=== PATIENT | female | born 1965 | race Caucasian/White ===

== ENCOUNTER → 2019-10-17 15:06 | Outpatient (CLI) | payer OTHER, SELFPAY ==
[2019-10-20 08:37] LABS: COVID19 Sendout Not Detected (Not Detect)
== END ==
PROVIDERS: Visit Provider Physician Assistant
DX: Z01.812 Encounter for preprocedural laboratory examination (principal)
CPT/HCPCS: 87635

== ENCOUNTER 2019-10-21 10:43 | Observation (INO) | payer OTHER, SELFPAY ==
[2019-10-09 12:59] VITALS: BMI 41.8
[2019-10-20] VITALS (23 sets, daily range): BP systolic 113–166; BP diastolic 19–84; PULSE 65–97; RESP 10–17; TEMP 36.2–37.3; O2SAT 92–99; BMI 44.6
--- NOTE | 2019-10-20 | DI.RAD.S_ITS ---
PROCEDURE: XR LUMBAR SPINE 2-3V INDICATIONS: L4-5 TLIF TECHNIQUE: 2 intraoperative fluoroscopic views of the lumbar spine were acquired. COMPARISON: None. FINDINGS: Intraoperative fluoroscopic images of lower lumbar spine shows transpedicular fusion at L4-5 level with intervertebral spacer placement. Alignment of lumbar spine is anatomic. IMPRESSION: Fluoroscopy guidance was provided intraoperatively for L4-5 fusion. Dictated by: Robert Hood M.D. on 10/20/2019 at 16:11 Approved by: Robert Hood M.D. on 10/20/2019 at 16:15
[2019-10-20] MEDS: LACTATED RINGERS 1,000 ML 42 ML IV ×2 (11:21→14:08)
--- NOTE | 2019-10-20 11:44 | PM.PREOP ---
Pre-operative Note COVID-19 COVID-19 status: Negative Result date/Date tested (Pos, Neg/Pending): 10/18/19 Interval Note History & Physical reviewed/Exam performed by Physician: Yes Changes to H&P: No
[2019-10-20] MEDS: MIDAZOLAM 2 MG/2 ML VIAL IV (12:08)
[2019-10-20] MEDS: CEFAZOLIN 2 GM/100 ML FROZ.PIGGY IV ×2 (12:11→19:41)
--- NOTE | 2019-10-20 12:49 | SUR.OPER ---
Prone on spine table, head in foam head support, padded chest and pelvic supports, gel pad at knees, lower legs supported by pillows; nipples, genitalia and toes free of pressure, arms secured on foam padded arm boards at <90 degrees abduction. Tape over blanket at thigh secured to table.
[2019-10-20] MEDS: BUPIVACAINE 0.25% W/ EPI 30 ML VIAL INJ (12:59)
[2019-10-20] MEDS: BUPIVACAINE LIPOSOME 266 MG/20 ML VIAL INJ (13:01)
--- NOTE | 2019-10-20 14:44 | P.OP_ITS ---
Operative Date/Time/Diagnoses Date of procedure: 10/20/19 Time of procedure: 12:46 Pre-op diagnosis: 1. L4-5, L5-S1 spinal stenosis 2. L4-5 spondylolisthesis 3. L4-5, L5-S1 spondylosis with radiculopathy Post-op diagnosis: same Procedure & Clinicians Procedure: 1. L4-5 Postero-lateral and posterior interbody fusion 2. L4-5 interbody cage placement. 3. L4-5 decompressive laminectomy with bilateral facetecomies 4. L4-5 Posterior non-segmental instrumentation 5. L5-S1 hemilaminectomy 6. Jackman of bone marrow from iliac crest 7. Utilization of microsurgical technique and operating microscope Same procedure as scheduled: Yes Indications: Patient has been having chronic back pain and worsening lumbar radiculopathy. Patient failed multiple conservative management with worsening pain weakness and numbness in her lower extremity. Patient has been having difficulty performing activity of daily living. After discussing risks benefits of treatment options, patient elected proceed with surgery. Surgeon: Adonis Dave [employer] Technician: Emilie Vargas Click Yes if Unassisted: No Anesthesia Type: General Operative Notes Closure Type: primary Specimen(s): none sent Prosthetic devices, grafts, tissues, transplants, or devices: Globus revolve screws, Rise cage Estimated Blood Loss (mL): 50 Blood products transfused: none Procedure in detail: Patient was seen in the preoperative area. Risks and benefits of the surgery was discussed with the patient. Informed consent was obtained from the patient and placed in the chart. Surgical site was marked. Patient was taken to the operative room. General anesthesia was administered. Prophylactic antibiotic was given to the patient less than 30 min before the incision was made. Patient was placed into a prone position on the Rajiv table. Patient's back was then prepped and draped in the sterile fashion. Time- out was performed at this time. Using AP and lateral C-arm imaging the interval between L4-5 L5-S1 was identified and marked on patient's back. A 2 inch incision 2 in from midline was made on the right side first. The fascia was incised in line with skin incision. Globus MARS retractors was placed inside the incision and docked onto the L4 lamina. Using microsurgical technique and operating microscope, a L4 laminectomy and L4-5 facetectomy was performed using a Kerrison rongeur. The disc space at L4-5 was identified. And a total diskectomy was performed at L4-5 level. The endplates were decorticated using a rasp and shaver. The total diskectomy and decortication was performed at L4-5 level in order to to accomplish a L4-5 fusion. Patient was found have severe central and neural foramen stenosis at L4-5 level which was fully decompressed after the laminectomy facetectomy was completed. The local bone from the laminectomy and facetectomy was saved for local bone grafting. After the total diskectomy and decortication was completed, Trifecta bone graft material was combined with local bone that was harvested earlier. At this time, a separate skin is incision was made over the iliac crest. A Jamshidi needle was inserted into the iliac crest through a separate skin incision. 5 cc of bone marrow aspiration was obtained through the separate skin incision using a Jamshidi needle from the iliac crest. The bone marrow aspiration was combined with local bone and the trifecta bone grafting material. The bone grafting material was placed into the L4-5 interbody space along with a expandable cage. The cage was expanded to its maximum height using the torque limiting screwdriver. At this time the MARS retractor was redirected over the L5 lamina. Using microsurgical technique and operating microscope, a L5 heminectomy was performed using the Kerrison rongeur. The ligamentum flavum was also resected at the side of the hemilaminectomy for further decompression of the epidural space. At this time a mirror image incision was made on the left side. The fascia was incised in line with the skin incision. Globus MARS retractor was inserted and docked onto the L4-5 posterolateral gutter. Using the power drill, posterior- lateral decortication was performed at L4-5 level until bleeding cortical bone was identified. The remaining bone grafting material was placed into the L4-5 posterior lateral gutter he order to accomplish posterolateral fusion at the L4- 5 level. Using the double C-arm technique, pedicle screws were placed into the L4 and L5 pedicles bilaterally. This was done by placing the Jamshidi needle into the pedicles, then placing the guidewires over the Jamshidi needle, and finally placing the cannulated screws over the guidewires bilaterally. After the pedicle screws were placed, 2 titanium rods was locked into the heads of the pedicle screws using locking caps and torque limiting screwdriver. After all the hardware was placed, and confirmed with AP and lateral C-arm imaging, the wound was then irrigated with sterile normal saline and packed with Ray-Kyle gauze for 3 min to accomplish hemostasis. After the gauze was removed the deep fascia was closed with #1 Vicryl suture. The subcutaneous layer was closed with 2-0 Vicryl. The skin was closed with skin mayuri. Patient tolerated the procedure well. There were no complications. Complications: none Post-operative Condition: stable Disposition: Acute Care Plan for aftercare: Admit to inpatient hospital
[2019-10-20] MEDS: ONDANSETRON 4 MG/2 ML INJ IV (15:14)
[2019-10-20] MEDS: HYDROMORPHONE 2 MG INJ IV ×4 (15:14→15:59)
[2019-10-20] MEDS: fentaNYL 100 MCG/2 ML INJ IV ×2 (15:14→15:37)
[2019-10-20] MEDS: LORazepam 2 MG/ML INJ 0.25 MG IV (15:28)
[2019-10-20] MEDS: SODIUM CHLORIDE 0.9% 1,000 ML 100 ML IV (17:03)
[2019-10-20] MEDS: hydrOXYzine pamoate 25 MG CAPSULE PO ×2 (17:49→22:34)
[2019-10-20] MEDS: HYDROMORPHONE 0.5 MG INJ IV ×3 (18:18→22:34)
[2019-10-20] MEDS: OXYCODONE IR 10 MG TABLET PO ×2 (19:05→23:22)
[2019-10-20] MEDS: LIDOCAINE PATCH 1 EACH ADH..PATCH TOP (20:03)
[2019-10-20] MEDS: DOCUSATE 100 MG CAPSULE PO (20:06)
[2019-10-20] MEDS: SENNOSIDES 8.6 MG TABLET 17.2 MG PO (20:06)
--- NOTE | 2019-10-20 22:43 | PC.NURSE ---
Pt is A and O x 4, rates L knee pain and bilat hip pain and surgical site pain 5-8/10. She has requested lidocaine patches dilaudid 0.5 mg IVP x 3, oxycodone 10 mg po x 1 since arriving on the unit at approx 1600. She is voiding qs clear yellow. S1,S2, LS clear, + BTs. Drg is C/D/I. She ate hospital dinner and [employer] and has dosed off a few times. She has made multiple requests and knows how to use her call light.
--- NOTE | 2019-10-21 01:16 | PC.NURSE ---
Addendum entered by Isabella Castro R.N. 10/21/19 03:41: States pain is better than earlier but still 6-7/10 so medicated with IV Dilaudid Addendum entered by Isabella Castro R.N. 10/21/19 02:40: States pain is now 7/10 and is no longer crying. Medicated with po Dilaudid + Vistaril. Addendum entered by Isabella Castro R.N. 10/21/19 01:43: Pain remains uncontrolled with the best pain got was 6/10 but now even with minimal movement is having 9/10 pain; tearful. Dr Corona contacted and new pain medication orders received. Original Note: Patient seen and assessed at 2322. Is alert and oriented. Breath sounds CTA with RA sat of 94%. HRR. Denies nausea. BT present but denies flatus. Has dysuria upon initial urination but denies frequency or urgency. Is moving self in bed. Assisted to BSC with walker and 1 assist. Dressing to back is CDI. Complains of 8/10 back pain radiating down leg to knee; medicated with Oxycodone and ice applied. Noted to have an abraised area on anterior left lower leg. Puffy around ankles. Calf SCD's applied as per MD order. Fall risk score is moderate; bed alarm is ativated.
[2019-10-21] MEDS: HYDROMORPHONE 0.5 MG INJ IV ×2 (01:21→01:37)
[2019-10-21] MEDS: HYDROMORPHONE 4 MG TABLET PO ×6 (02:38→21:28)
[2019-10-21] MEDS: hydrOXYzine pamoate 25 MG CAPSULE PO ×2 (02:38→21:29)
[2019-10-21 03:30] VITALS: BP 153/76; PULSE 83; RESP 16; TEMP 37; O2SAT 94
[2019-10-21] MEDS: SODIUM CHLORIDE 0.9% 1,000 ML 100 ML IV (03:32)
[2019-10-21] MEDS: HYDROMORPHONE 1 MG INJ IV ×4 (03:33→21:42)
[2019-10-21] MEDS: CEFAZOLIN 2 GM/100 ML FROZ.PIGGY IV (03:39)
[2019-10-21 05:52] LABS: Hematocrit 37.9 % (36-46); Hemoglobin 13.2 g/dL (12.0-16.0)
--- NOTE | 2019-10-21 08:08 | PM.PNPO.1 ---
Subjective Subjective Date Patient Seen: 10/21/19 Time Patient Seen: 08:08 Interval history: Postop day [address] Dave. Had a lot of pain control issues overnight distal rating and a eugenia 9/10 with oxycodone. Was switched to oral Dilaudid and IV Dilaudid increased from 0.5-1 as seems to be doing much better this morning. Also states that she does not have much pain when she is walking around the more when she is lying in bed. Denies fevers or chills also states that she is not allergic to acetaminophen only Vicodin. Exam Vital Signs (past 8 hours): - 10/21/19 03:30 Temperature 98.6 F Pulse Rate 83 Respiratory Rate 16 Blood Pressure 153/76 H Pulse Oximetry 94 Oxygen Delivery Method Room Air Oxygen Flow Rate 0 Narrative Exam Narrative: General exam alert oriented female no acute distress HEENT exam normocephalic atraumatic Respiratory exam unlabored on room air Musculoskeletal exam demonstrates dorsiflexion plantar flexion bilateral ankles. SCDs are not in place they are often at the end of the bed. Calves are soft. Objective Labs Result Diagrams: 10/21/19 05:35 Labs: Laboratory Results - last 24 hr 10/21/19 05:35 Hgb 13.2 Hct 37.9 Assessment & Plan Post-op Postoperative Procedures: Procedures Operation Date: 10/20/19 12:15 Actual Procedures Side Surgeon p L5-S1 hemilaminectomy, L4-5 TLIF w/posterior instrumentation Adonis Dave MD Postop day 1. Mobilized with physical therapy today. Work on pain control. Focus on the oral pain medication limit IV as much as possible. Likely discharge tomorrow Quality VTE Deep Vein Thrombosis/Pulmonary Embolism Present on Admission: No
--- NOTE | 2019-10-21 08:55 | OT.IP.EVAL ---
Current Diagnoses Spondylolisthesis, lumbar region (10/20/19) Spinal stenosis, lumbar region without neurogenic claudication (10/20/19) Spinal stenosis, lumbar region with neurogenic claudication (10/20/19) Surgery Performed Operation Date: 10/20/19 12:15 Actual Procedures p L5-S1 hemilaminectomy, L4-5 TLIF w/posterior instrumentation - Adonis Dave MD Past Medical History (Last Updated 10/15/19 @ 11:32 by Kristine Schulte RN) Marin's esophagus (Acute) Depression (Acute) Elevated cholesterol (Acute) GERD (gastroesophageal reflux disease) (Acute) HTN (hypertension) (Acute) Kidney stone (Acute) Mood disorder (Acute) PVCs (premature ventricular contractions) (Acute) Viral meningitis (Acute) Surgical History (Last Updated 10/15/19 @ 11:32 by Kristine Schulte RN) History of (Acute) History of hysterectomy (Acute) Occupational Therapy Inpatient Evaluation/Re-Eval M1 PT/OT-IP Prior Functional Status Start: 10/21/19 12:44 Freq: NEEDED Status: Active Protocol: Document 10/21/19 08:55 [facility] (Rec: 10/21/19 15:05 [facility] [id number]) Medical Review Prior Functional Status Medical History Reviewed Yes Communication able to make needs known Mobility and Gait pt stated that she is independent with all mobilities and ambulation without AD Activities of Daily Living and IADL's Pt states was able to do all ADl and IADl needs but having more difficulty and very painful while sweeping. Social History Household Members other Living Arrangements House Number of Floors (Floors) One Floor Number of Stairs To Enter/Railing? 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 Pt states has friends that can assist and check on her daily but not stay with her. M2 OT-IP Current Condition Start: 10/21/19 12:44 Freq: Status: Active Protocol: Document 10/21/19 08:55 [facility] (Rec: 10/21/19 15:05 [facility] [id number]) Occupational Therapy Current Condition Current Condition Evaluation Date 10/21/19 Treatment Diagnosis Spinal stenosis, s/p L5-S1 hemilaminectomy, L4-5 TLIF w/ post inst Diagnosis Onset Date 10/20/19 Post Operative Precautions Lumbar Precautions Log Roll,No Twisting,Limit Bending,Lifting Restriction of 10 lbs,Gait Belt above Incisional Area Weight Bearing Status Weight Bearing Status Weight Bear as Tolerated M3 OT- IP Subjective and Pain Start: 10/21/19 12:44 Freq: Status: Active Protocol: Document 10/21/19 08:55 [facility] (Rec: 10/21/19 15:05 [facility] [id number]) OT- Subjective Occupational Therapy Visit Type Type Initial Evaluation Visit Start Time 08:55 Visit Stop Time 10:03 Total Visit Minutes 68 Occupational Therapy Visit Comments Patient Comments Pt already up in the recliner and agreed to get up for OT eval. Patient/Caregiver Goals To go home. OT Pain Assessment Pain When Pain Assessed During Mobility Pain Present Pain Present Pain Reported Location left back/leg/knee Intensity 7 M4 OT- IP ADL's Start: 10/21/19 12:44 Freq: Status: Active Protocol: Document 10/21/19 08:55 [facility] (Rec: 10/21/19 15:05 [facility] [id number]) OT [id number] General Evaluation Self-Feeding Ability Independent OT ADL-Grooming General Evaluation Grooming Ability Standby Assistance Comments OT Grooming Comments Educated to lean at hips or spit into a cup to follow back precautions. OT ADL-Oral Care General Eval Oral Care Ability Independent OT ADL-Dressing General Eval Lower Body Dressing Ability Maximum Assistance Areas Needing Assistance Socks Comments OT Dressing Comments Pt states to just wear gowns at home and may not even wear underwear. Educated on LB dressing equipment to help increase ease and independence with LB dressing with use of compound specialist, sock aid and long handled shoe horn. OT ADL-Toileting General Evaluation Areas Needing Assistance Perform Perineal Hygiene Comments OT Toileting Comments At this time , pt would not be able to reach after a bowel movement and educated on toilet paper aid to increase ease and to ensure proper back precautions. OT ADL-Bathing Comments OT Bathing Comments Not at this time. M5 OT- IP IADL's Start: 10/21/19 12:44 Freq: Status: Active Protocol: Document 10/21/19 08:55 [facility] (Rec: 10/21/19 15:05 [facility] [id number]) OT-Instrumental Activities of Daily Living Deficits IADL Deficits Identified Deficits Home Safety Awareness Awareness of Need for Assistance at Home Good Awareness Ability to Problem Solve Emergency Able to Problem Solve Situations Medication Management Medication Management No Deficits Identified Money Management Money Management No Deficits Identified Meal Preparation Meal Preparation Caregiver Provides Assist Body Technician/Painter Body Technician/Painter Caregiver Provides Assist Driving Driving Caregiver Provides Assist M6 OT- IP Functional Cognition Start: 10/21/19 12:44 Freq: Status: Active Protocol: Document 10/21/19 08:55 [facility] (Rec: 10/21/19 15:05 [facility] [id number]) Cognitive Factors Limiting Selfcare Function Cognitive Ability Level of Alertness Alert Patient Orientation Name,Age,Birthday,Month,Date, Year,Day of Week,Place, Situation Attention Span Ability Capable of Focused Attention, Capable of Sustained Attention Ability to Follow Commands Able to Follow One Step Commands Memory Description No Deficits Noted Safety Awareness Decreased Ability to Apply Precautions,Underestimates Need for Assistance Cognitive Comments Cognitive Assessment Comments Pt needing reminders to incorporate back precautions for mobility needs. use of at least one hand to push up from surface sitting on. OT- Vision and Hearing OT- Hearing Assessment OT- Hearing Assessment WFL OT- Vision Assessment Visual Acuity WFL M7 OT- IP Mobility and Balance Start: 10/21/19 12:44 Freq: Status: Active Protocol: Document 10/21/19 08:55 [facility] (Rec: 10/21/19 15:05 [facility] [id number]) OT- Bed Mobility Assessment Rolling Type of Rolling Roll to Left Supine to Sit Supine to Sit Assist Standby Assistance Sit to Supine Sit to Supine Assist Standby Assistance Scooting Scooting to Edge of Bed Standby Assistance OT-Transfer Assessment Sit to and From Stand Sit to and from Stand Standby Assistance Transfers Transfer Ability Standby Assistance Technique Transfer Destination Bed,Chair,Toilet Devices Transfer Assistive Devices Gait Belt,Front Wheeled Walker Comments Mobility Comments Initially pt needing use of bed rail to help get up and then after practice and more education able to get into and out of the bed without use of bed rail with increased time. Pt states has a recliner coming on and plans to sleep there initially. OT- Gait Assessment Comments Gait Ability Comments SBA with FWW. OT- Balance Assessment Sitting Balance and Reactions Static Sitting Balance Ability Normal Dynamic Sitting Balance Ability Good Standing Balance and Reactions Static Standing Balance Ability Good M8 OT- IP Objective Assessments Start: 10/21/19 12:44 Freq: Status: Active Protocol: Document 10/21/19 08:55 [facility] (Rec: 10/21/19 15:05 [facility] [id number]) OT Gross Range of Motion Upper Extremity Range of Motion Assessment Within Functional Limits OT Strength Upper Extremity Strength Assessment Within Functional Limits OT-Muscle Tone Assessment Muscle Tone WNL Yes M9 OT- IP Assessment and Plan Start: 10/21/19 12:44 Freq: Status: Active Protocol: Document 10/21/19 08:55 [facility] (Rec: 10/21/19 15:05 [facility] [id number]) OT Summary Assessment and Plan Potential Rehabilitation Potential Good Analytic Complexity at Evaluation Low Summary OT Impairments Pain,Functional Mobility, Grooming,Dressing,Toileting, Bathing,Toilet Transfers, Shower Transfers,Activity Tolerance Progress Towards Goals Progressing Toward Goals Assessment Summary Pt low complexity and main barrier are steps, pain, and now needing assist for toileting and dressing needs. Pt will benefit from toilet aid. Pt looking to go home when medically stable. Goals Grooming Goal Independent Dressing Goal Independent Toileting Goal Independent,Toilet Paper Aid Bathing Goal Standby Assistance Toilet Transfer Goal Independent Shower Transfer Goal Standby Assistance Patient/Caregiver Education Goal Demonstrate Post-Op Precautions,Caregiver Independent Assisting Patient Days to Meet Goals 5 Frequency of Treatment Frequency Of Treatment Once a Day Treatment Plan OT Treatment Plan ADL Training,Functional Mobility,Patient/Family Education,Discharge Planning Other Treatment Recommendations and Next Shower Treatment Focus Discharge Recommendations OT Discharge Recommendations Home with Assistance Home Equipment Needs Toilet paper aid Transportation Needs at Discharge Private Vehicle
[2019-10-21 09:00] VITALS: BP 146/81; PULSE 83; RESP 16; TEMP 37.3; O2SAT 97
[2019-10-21] MEDS: PSYLLIUM HUSK 1 PACKET PO (09:25)
[2019-10-21] MEDS: LOSARTAN 50 MG TABLET 100 MG PO (09:25)
[2019-10-21] MEDS: DOCUSATE 100 MG CAPSULE PO ×2 (09:25→21:28)
[2019-10-21] MEDS: lamoTRIgine 100 MG TABLET 200 MG PO (09:26)
[2019-10-21] MEDS: atenoloL 50 MG TABLET PO (09:26)
--- NOTE | 2019-10-21 10:00 | PT.IIE ---
Current Diagnoses Spondylolisthesis, lumbar region (10/20/19) Spinal stenosis, lumbar region without neurogenic claudication (10/20/19) Spinal stenosis, lumbar region with neurogenic claudication (10/20/19) Surgery Performed Operation Date: 10/20/19 12:15 Actual Procedures p L5-S1 hemilaminectomy, L4-5 TLIF w/posterior instrumentation - Adonis Dave MD Surgical History (Last Updated 10/15/19 @ 11:32 by Kristine Schulte RN) History of (Acute) History of hysterectomy (Acute) Medical History (Last Updated 10/15/19 @ 11:32 by Kristine Schulte RN) Marin's esophagus (Acute) Depression (Acute) Elevated cholesterol (Acute) GERD (gastroesophageal reflux disease) (Acute) HTN (hypertension) (Acute) Kidney stone (Acute) Mood disorder (Acute) PVCs (premature ventricular contractions) (Acute) Viral meningitis (Acute) Physical Therapy Inpatient Evaluation/Re-Eval M1 PT/OT-IP Prior Functional Status Start: 10/21/19 12:28 Freq: NEEDED Status: Active Protocol: Document 10/21/19 10:00 AB (Rec: 10/21/19 12:43 AB [id number]) Medical Review Prior Functional Status Medical History Reviewed Yes Communication able to make needs known Mobility and Gait pt stated that she is independent with all mobilities and ambulation without AD Social History Household Members other Living Arrangements House Number of Floors (Floors) One Floor Number of Stairs To Enter/Railing? 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 PT-IP Current Condition Start: 10/21/19 12:28 Freq: NEEDED Status: Active Protocol: Document 10/21/19 10:00 AB (Rec: 10/21/19 12:43 AB [email or web address]) Physical Therapy Current Condition Current Condition Evaluation Date 10/21/19 Treatment Diagnosis s/p L4-5 post/postlat fusion/ lami; L5S1 hemilami; difficulaty in walking Onset Date 10/20/19 Precautions Lumbar Precautions Log Roll,No Twisting,Limit Bending,Lifting Restriction of 10 lbs,Gait Belt above Incisional Area M3 PT-IP Subjective Start: 10/21/19 12:28 Freq: NEEDED Status: Active Protocol: Document 10/21/19 10:00 AB (Rec: 10/21/19 12:43 AB [email or web address]) Subjective Physical Therapy Visit Type Type Initial Evaluation Visit Start Time 10:00 Visit Stop Time 10:45 Total Visit Minutes 45 Number of MANUFACTURING MAINTENANCE MECHANIC Visits 0 Physical Therapy Visit Comments Patient Comments agreeable to do PT Therapy Pain Assessment Pain When Pain Assessed At Rest Pain Present Pain Present Pain Reported Location left back/leg/knee Intensity 7 Scale Used Numeric (0 - 10) Pain Management Techniques Apply Cold,Distraction, Modification of Treatment,Re- positioning,Timing of Activity with Medications M4 PT-IP Mobility and Gait Start: 10/21/19 12:28 Freq: NEEDED Status: Active Protocol: Document 10/21/19 10:00 AB (Rec: 10/21/19 12:43 [email or web address]) PT-Bed Mobility Assessment Rolling Type of Rolling Log Rolling Level of Assist Minimal Assistance Supine to Sit Supine to Sit Minimal Assistance,Bedrails Sit to Supine Sit to Supine Standby Assistance,Bedrails PT-Transfer Assessment Sit to and From Stand Sit to and from Stand Contact Guard Assistance,1 Person Assistance,Use of Upper Extremities Equipment Transfer Assistive Device Gait Belt,Large Based Quad Cane Orthotic/Prosthetic Devices or Brace: No Transfers Transfer Destination Toilet Transfer Technique ambulated using FWW Comments Mobility Comments completed log roll supine to sit min A and cues. c/o pain. pt was able to sit on EOB SBA. completed sit to stand CGA and ambulated using FWW CGA. completed stairs and ambulated back to room CGA. pt requested to use the toilet . completed using FWW CGA. Pt stated that she does not tolerate sitting due to pain and want to go back in bed. positioned pt in bed. ice pack provided. call light and table placed within reach. Gait Assessment Gait Gait Assistance Required: Contact Guard Assist Distance (Feet) 200 Able to Maintain Weight Bearing Status Yes During Gait Assistive Devices Assistive Device Front Wheeled Walker Orthotic/Prosthetic Devices or Brace: No Factors Limiting Gait Function Factors Limiting Gait Function Decreased Strength,Limited Range of Motion,Pain,Poor Balance Stair Climbing Assessment Evaluation Level of Assist On Stairs Contact Guard Assistance,1 Person Assistance Devices Stair Climbing Assistive Devices Right Railing Technique/Endurance Stair Climbing Direction Ascend and Descend Stair Climbing Technique Step to Step Number of Steps Climbed 3 Query Text: Stair Climbing Set # Repetitions (reps) 1 Comments Stair Climbing Comments pt use R rail ascending with pt holding on with B hands PT-Balance Assessment Sitting Balance and Reactions Static Sitting Balance Ability Good Dynamic Sitting Balance Ability Good Standing Balance and Reactions Static Standing Balance Ability Fair Dynamic Standing Balance Ability Fair Device Used FWW M5 PT-IP Objective Assessments Start: 10/21/19 12:28 Freq: NEEDED Status: Active Protocol: Document 10/21/19 10:00 AB (Rec: 10/21/19 12:43 AB [id number]) Orientation Orientation/Cognition Level of Alertness Alert Orientation Name,Age,Birthday,Month,Date, Year,Day of Week,Place, Situation Language Function Ability No Deficits Noted Safety Awareness Understands Safety Issues Memory Description No Deficits Noted Gross Range of Motion Lower Extremity ROM Assessment Within Functional Limits Strength Lower Extremity Strength Assessment Right Impaired Hip 4-/5 Knee 4-/5 Coordination Assessment Gross Coordination Gross Coordination WNL Sensation Assessment Sensation Gross Sensation WNL Muscle Tone Muscle Tone WNL Yes M6 PT-IP Treatment Start: 10/21/19 12:28 Freq: NEEDED Status: Active Protocol: Document 10/21/19 10:00 AB (Rec: 10/21/19 12:43 AB [email or web address]) Physical Therapy Treatment Education Education Provided Precautions,Weight Bearing Status,Post-Op Packet,Safety M7 PT-IP Assessment and Plan Start: 10/21/19 12:28 Freq: NEEDED Status: Active Protocol: Document 10/21/19 10:00 AB (Rec: 10/21/19 12:43 AB [email or web address]) PT Summary Assessment and Plan Potential Rehabilitation Potential Good Status of Condition at Evaluation Stable Summary Impairments Pain,ROM,Strength,Balance,Bed Mobility,Transfers,Gait, Activity Tolerance Assessment Summary pt requiring min A with bed mobility, CGA with transfers and ambulation using FWW but with c/o increase pain and requires increase time to complete all tasks. pt plans to go home and stated that her roommate may be able to assist her some but is not definite. pt will likely progress with mobility during hospital stay. will continue to assess progress. Goals Bed Mobility Goal Independent Transfer Goal Independent,Front Wheeled Walker Gait Goal Independent,Front Wheel Walker Gait Distance 250 Other Goals up/down 8 steps R rail ascending SBA Days to Meet Goals 5 Frequency of Treatment Frequency Of Treatment Twice a Day Treatment Plan Physical Therapy Treatment Plan Bed Mobility Training,Transfer Training,Gait Training, Therapeutic Exercise,Balance Retraining,Post Op Education, Discharge Planning,Hot or Cold Pack,Neuromuscular Re-ed, Coordination Retraining,Manual Therapy Recommendations To Nursing Amount of Assist Needed 1 Person Assist Discharge Recommendations PT Discharge Recommendations Home with Assistance Transportation Needs at Discharge Private Vehicle
[2019-10-21 12:00] VITALS: BP 169/88; PULSE 66; RESP 16; TEMP 37.1; O2SAT 98
[2019-10-21] MEDS: SODIUM CHLORIDE 0.9% FLUSH 10 ML IV ×2 (12:26→21:28)
--- NOTE | 2019-10-21 13:49 | PT.IPTN ---
Current Diagnoses Spondylolisthesis, lumbar region (10/21/19) Spinal stenosis, lumbar region without neurogenic claudication (10/21/19) Spinal stenosis, lumbar region with neurogenic claudication (10/21/19) Surgery Performed Operation Date: 10/20/19 12:15 Actual Procedures p L5-S1 hemilaminectomy, L4-5 TLIF w/posterior instrumentation - Adonis Dave MD Physical Therapy Treatment Note M2 PT-IP Current Condition Start: 10/21/19 12:28 Freq: NEEDED Status: Active Protocol: Document 10/21/19 10:00 AB (Rec: 10/21/19 12:43 AB [email or web address]) Physical Therapy Current Condition Current Condition Evaluation Date 10/21/19 Treatment Diagnosis s/p L4-5 post/postlat fusion/ lami; L5S1 hemilami; difficulaty in walking Onset Date 10/20/19 Precautions Lumbar Precautions Log Roll,No Twisting,Limit Bending,Lifting Restriction of 10 lbs,Gait Belt above Incisional Area M3 PT-IP Subjective Start: 10/21/19 12:28 Freq: NEEDED Status: Active Protocol: Document 10/21/19 13:49 AB (Rec: 10/21/19 16:27 AB [email or web address]) Subjective Physical Therapy Visit Type Type Treatment Note Visit Start Time 13:49 Visit Stop Time 14:13 Total Visit Minutes 24 Number of CHAIR FRAME BUILDER Visits 0 Physical Therapy Visit Comments Patient Comments agreeable to do PT Therapy Pain Assessment Pain When Pain Assessed At Rest Pain Present Pain Present Pain Reported Location left back/leg/knee Intensity 6 Scale Used Numeric (0 - 10) Pain Behaviors Guarding,Wincing Pain Management Techniques Apply Cold,Distraction,Timing of Activity with Medications M4 PT-IP Mobility and Gait Start: 10/21/19 12:28 Freq: NEEDED Status: Active Protocol: Document 10/21/19 13:49 AB (Rec: 10/21/19 16:27 AB [email or web address]) PT-Bed Mobility Assessment Rolling Type of Rolling Log Rolling Level of Assist Standby Assistance Supine to Sit Supine to Sit Standby Assistance,Bedrails Sit to Supine Sit to Supine Standby Assistance,Bedrails PT-Transfer Assessment Sit to and From Stand Sit to and from Stand Standby Assistance,1 Person Assistance,Use of Upper Extremities Equipment Transfer Assistive Device Bed Rail Orthotic/Prosthetic Devices or Brace: No Transfers Transfer Destination Toilet Transfer Technique ambulated using FWW Transfer Ability Level of Assist Standby Assistance Comments Mobility Comments completed supine to sit SBA with use of bed rail and presents with difficulty completing task. completed sit to stand SBA and ambulated using FWW ~ 150 ft SBA. completed up/down steps using R rail with pt holding on with B hands SBA. pt ambulated back to her room using FWW SBA and requested to use the toilet. pt was able to complete toileting SBA and ambulated towards sink using FWW SBA and completed handwashing SBA. pt requested to go back to bed and ambulated to the bed using FWW SBA. completed bed mobility sit to supine SBA. positioned in bed. call light and table placed within reach. Gait Assessment Gait Gait Assistance Required: Standby Assistance Distance (Feet) 150 Assistive Devices Assistive Device Gait Belt,Front Wheeled Walker Orthotic/Prosthetic Devices or Brace: No Gait Deviations General Gait Pattern Antalgic,Decreased Stride Length,Decreased Feet Clearance Factors Limiting Gait Function Factors Limiting Gait Function Decreased Activity Tolerance, Decreased Strength,Limited Range of Motion,Pain,Poor Balance,Poor Safety Awareness Stair Climbing Assessment Evaluation Level of Assist On Stairs Standby Assistance Devices Stair Climbing Assistive Devices Right Railing Technique/Endurance Stair Climbing Direction Ascend and Descend Stair Climbing Technique Step to Step Number of Steps Climbed 3 Stair Climbing Set # Repetitions (reps) 1 M5 PT-IP Objective Assessments Start: 10/21/19 12:28 Freq: NEEDED Status: Active Protocol: Document 10/21/19 10:00 AB (Rec: 10/21/19 12:43 AB [id number]) Orientation Orientation/Cognition Level of Alertness Alert Orientation Name,Age,Birthday,Month,Date, Year,Day of Week,Place, Situation Language Function Ability No Deficits Noted Safety Awareness Understands Safety Issues Memory Description No Deficits Noted Gross Range of Motion Lower Extremity ROM Assessment Within Functional Limits Strength Lower Extremity Strength Assessment Right Impaired Hip 4-/5 Knee 4-/5 Coordination Assessment Gross Coordination Gross Coordination WNL Sensation Assessment Sensation Gross Sensation WNL Muscle Tone Muscle Tone WNL Yes M6 PT-IP Treatment Start: 10/21/19 12:28 Freq: NEEDED Status: Active Protocol: Document 10/21/19 10:00 AB (Rec: 10/21/19 12:43 AB [email or web address]) Physical Therapy Treatment Education Education Provided Precautions,Weight Bearing Status,Post-Op Packet,Safety M7 PT-IP Assessment and Plan Start: 10/21/19 12:28 Freq: NEEDED Status: Active Protocol: Document 10/21/19 13:49 AB (Rec: 10/21/19 16:27 AB [id number]) PT Summary Assessment and Plan Potential Rehabilitation Potential Good Summary Impairments Pain,ROM,Strength,Balance,Tone ,Cognition,Bed Mobility, Transfers,Gait,Activity Tolerance Progress Towards Goals Slow Progress due to Pain Assessment Summary pt continues to c/o increase back pain but able to mobility with SBA but requires longer time to complete all tasks. pt plans to go home and has a friend that can assist her but not until sunday. stated that she has other friends that can check on her. pt will also need a FWW for home use. will request for orders. Goals Bed Mobility Goal Independent Transfer Goal Independent,Front Wheeled Walker Gait Goal Independent,Front Wheel Walker Gait Distance 250 Other Goals up/down 8 steps R rail ascending SBA Days to Meet Goals 5 Frequency of Treatment Frequency Of Treatment Twice a Day Treatment Plan Physical Therapy Treatment Plan Bed Mobility Training,Transfer Training,Gait Training, Therapeutic Exercise,Balance Retraining,Post Op Education, Discharge Planning,Hot or Cold Pack,Neuromuscular Re-ed, Coordination Retraining,Manual Therapy Recommendations To Nursing Amount of Assist Needed 1 Person Assist Discharge Recommendations PT Discharge Recommendations Home with Assistance Transportation Needs at Discharge Private Vehicle
--- NOTE | 2019-10-21 16:01 | PC.NURSE ---
Dysuria: C/O burning, frequency and urgency with urination. This chart writer let DONNY Chance know and received order to collect UA. Order received for Pyridium, patient agreed to wait until after UA collected to take first dose. Selene felipe RN and WOOD GANG SAWYER both aware of UA order. Patient resting quietly in bed at shift change with alarm on, light and belongings within reach.
--- NOTE | 2019-10-21 16:07 | CM.DANOTE ---
Addendum entered by Komal Tobar 10/22/19 12:27: Therapy requesting order for FWW for home use. Obtained order for needed DME. Home today. KJ Original Note: DCP/Assessment: Reviewed chart. Patient is a 54yr old female admitted to [facility] for spinal surgery. No PCP listed. Primary payor: 1)[facility]. Attempted to meet with patient to explain CM/SW role. RN/Tyshawn reports patient has had pain issues most of the day. Patient currently asleep, and staff requesting that we do not wake her up. Spoke with PT/Gia she confirms that patient had pain issues during therapy session today. Current therapy recommendation is home when medically stable. P: CM team to reattempt visit in AM on 10-22-19. DERRELL Thompson Discharge Planning/Care Management Advanced directive, confirm from FAMILY Start: 10/20/19 16:55 Freq: Q24H Status: Active Protocol: Document 10/20/19 10:57 SL (Rec: 10/20/19 18:24 [id number]) Advance Directive, confirm on record Time 18:23 Person contacted patient Copy received No CM Discharge Assessment Start: 10/21/19 16:05 Freq: Status: Active Protocol: Document 10/21/19 16:05 KAILEE (Rec: 10/21/19 16:06 YESSI [id number]) Discharge Planning Assessment Assigned Jetting Machine Operator DERRELL Thompson Contact Information [facility] Advance Directives? Yes Advance Directives on File No History Provided By Medical Record Has Patient been admitted in last 30 No days? Prior Living Arrangements House Household Members other Type of transporation used prior to Drives own vehicle admit Independent with ADL's Yes Is patient alert and oriented? Yes: Sleeping at time of assessment Caregiver for Another No Barriers to Discharge No Discharge Plan Home Whiteboard Updated in Patient Room with Yes name and ext. # of Jetting Machine Operator Review Status In Process Next Review Type Continued Stay Review Pre-Anesthesia Assessment Start: 10/09/19 12:59 Freq: Status: Complete Protocol: Document 10/09/19 12:59 CAB (Rec: 10/09/19 13:19 CAB [id number]) Pre-Anesthesia Assessment PAC Comment Unable to reach pt for scheduled PAC phone call today , no medical/medication records available in system. Surgeon H&P not available, unable to complete PAC. 10/13/19-Pt left msg on Sunday, stating no change to medical/ medication history, has no questions. We still do not have any medical records 10/15/19-Pt called, PAC completed Patient Information Reviewed Via Phone Assessment Assessment Completed With Patient Diagnostic Results BMP/CMP,CBC Comment Outside labs/EKG done 10/13-not here, pt needs to schedule COVID Primary Care Provider Hannah García Seen Specialist in Last 12 Months Yes Specialist Seen Orthopedist Primary Language Jordanian Facsimile Operator Required No Height 153.04 cm Weight 97.976 kg Body Mass Index (BMI) 41.8 Hearing Ability Normal Visual Assist Glasses Dentition Type Teeth, Natural Present Comment I'm a little slow at learning , I have ADD Hx Anesthesia Reactions Yes: Bradycardia w/, s/p hysterectomy Hx Family Anesthesia Reaction No Hx Malignant Hyperthermia No Hx Blood Transfusions No Anesthesia Review Requested No Agricultural Adviser No alcohol intake current alcohol intake frequency holidays/special occasions only Smoking Status Never smoker Substance Use Type does not use Pain Present Pain Reported Musculoskeletal Symptoms Abnormal Gait,Back Pain, Difficulty Walking,Radiating Pain into Limb History of Falling (Recent or History of No ) Patient is completely paralyzed or No completely immobile Mental Status Oriented to own ability Is patient on oxygen? No Does patient have [place] T[place]/SOB Yes: A little, I'm out of shape Hx Sleep Apnea No Suspected Sleep Apnea Yes Currently Taking a Beta Charlie Yes: Atenolol Can You Climb a Flight of Stairs Without No: A little, I'm out of SOB shape Hx Chest Pain No Hx SOB Yes: A little, I'm out of shape Hx Syncope or Dizziness No Anti-Coagulant Therapy No Has a Pediatrician Active Practice No Cardiac Testing No Hx Pacemaker/ICD No Pacemaker Rep Required? No Diet Type At Home Regular,Low Carb dysphagia No Gastrointestinal Symptoms Constipation,Reflux Bladder Pattern Incontinent Urinary Catheter Present No Hx Urinary Self Catheterization No Diabetes No Patient No Lactating No Hx Drug Resistant Organism Yes: MRSA back 2008 Presence of External or Internal Medical No Devices Have you had any close contact with No someone diagnosed with COVID-19? Evaluation/Screening for possible COVID- Yes 19 infection completed? Marital Status Lives With none Prior Living Arrangements House Number of Floors (Floors) One Floor Does the Patient Have Assistance After Yes: Help available starting Surgery 10/22 Patient Discharge Plan Description Return Home Feels Safe in Current Environment Yes Been Physically Hurt or Threatened By a No Person in Current Environment Do you have thoughts of harming yourself None or others? Are you currently considering suicide? No Do you have a plan to hurt yourself or No Plan others? Do You Have Any Spiritual Beliefs That No May Affect Your HC Choices? Do You Have Any Cultural Practices That No May Affect Your HC Choices? Comment Episcopalian Who Can We Speak to About Patient's Care Family, friends Identifying Code for Release of Patient Declines to issue Information Health Care Proxy/Next of Kin Sachi (daughter) Health Care Proxy Emergency Contact Name Sachi (daughter) Emergency Contact Advance Directives? Yes Advance Directives on File No Requested Patient Bring Advanced Yes Directives DOS Power of Tune Up Mechanic No PAC Instructions Medications to take/avoid, Nasal antibiotic,No ETOH/ petroleum product on skin DOS, NPO,Post-op transportation,Pre -surgical wash,Sturdy shoes/ comfortable clothes,Do not bring valuables and remove jewelry Stop Bang Assessment Do you snore loudly (louder than talking Yes or loud enough to be heard through closed doors) Do you often feel tired, fatigued or Yes sleepy during the daytime Has anyone ever observed you stop No: Pt sleeps alone breathing while sleeping? Do you have, or are you being treated Yes for, high blood pressure Is your BMI more than 35 kg/m2 Yes Age over 50 Yes Estimated neck circumference greater Yes than 40cm or 16in Gender male No Result Positive
[2019-10-21 16:09] LABS: Bacteria Urine None Seen; RBC Urine None Seen (0-5/HPF); WBC Urine None Seen (0-5/HPF)
[2019-10-21 16:16] LABS: Appearance Urine UA CLEAR; Bilirubin Urine UA NEGATIVE (NEGATIVE); Color Urine UA YELLOW; Glucose Urine UA NEGATIVE (Negative); Ketones Urine UA NEGATIVE (NEGATIVE); Leukocyte Esterase Urine UA NEGATIVE (NEGATIVE); Nitrite Urine UA NEGATIVE (Negative); Occult Blood Urine UA NEGATIVE (Negative); Protein Urine UA NEGATIVE (Negative); Specific Gravity Urine UA <=1.005 (1.000-1.035); Urobilinogen Urine UA 0.2 E.U./dL (0.2)
[2019-10-21 16:18] VITALS: BP 170/91; PULSE 71; RESP 18; TEMP 36.9; O2SAT 98
[2019-10-21 16:19] LABS: pH Urine UA 6.5 (4.5-8.0)
[2019-10-21 16:26] LABS: Culture Indicated Urine Cult Not Indicated; Urine Comments Microscopic Normal
[2019-10-21] MEDS: PHENAZOPYRIDINE 100 MG TABLET PO (17:18)
[2019-10-21] MEDS: LIDOCAINE PATCH 1 EACH ADH..PATCH TOP (19:50)
[2019-10-21 20:29] VITALS: BP 168/89; PULSE 81; RESP 18; TEMP 37; O2SAT 95
[2019-10-21] MEDS: SENNOSIDES 8.6 MG TABLET 17.2 MG PO (21:28)
[2019-10-22] VITALS: BP 136/69; PULSE 76; RESP 18; TEMP 37; O2SAT 97
[2019-10-22] MEDS: HYDROMORPHONE 4 MG TABLET PO ×3 (01:49→12:38)
[2019-10-22] MEDS: hydrOXYzine pamoate 25 MG CAPSULE PO ×2 (01:49→08:12)
[2019-10-22] MEDS: HYDROMORPHONE 1 MG INJ IV ×3 (02:35→11:32)
[2019-10-22 05:00] VITALS: BP 143/84; PULSE 78; RESP 18; TEMP 36.2; O2SAT 96
[2019-10-22] MEDS: SODIUM CHLORIDE 0.9% FLUSH 10 ML IV ×2 (06:50→08:15)
[2019-10-22 07:00] VITALS: BP 129/62; PULSE 79; RESP 18; TEMP 36.6; O2SAT 94
[2019-10-22] MEDS: lamoTRIgine 100 MG TABLET 200 MG PO (08:13)
[2019-10-22] MEDS: PSYLLIUM HUSK 1 PACKET PO (08:13)
[2019-10-22] MEDS: LOSARTAN 50 MG TABLET 100 MG PO (08:13)
[2019-10-22] MEDS: PHENAZOPYRIDINE 100 MG TABLET PO (08:13)
[2019-10-22] MEDS: DOCUSATE 100 MG CAPSULE PO (08:13)
[2019-10-22] MEDS: atenoloL 50 MG TABLET PO (08:14)
--- NOTE | 2019-10-22 09:29 | PT.IPTN ---
Current Diagnoses Spondylolisthesis, lumbar region (10/21/19) Spinal stenosis, lumbar region without neurogenic claudication (10/21/19) Spinal stenosis, lumbar region with neurogenic claudication (10/21/19) Surgery Performed Operation Date: 10/20/19 12:15 Actual Procedures p L5-S1 hemilaminectomy, L4-5 TLIF w/posterior instrumentation - Adonis Dave MD Physical Therapy Treatment Note M2 PT-IP Current Condition Start: 10/21/19 12:28 Freq: NEEDED Status: Active Protocol: Document 10/21/19 10:00 AB (Rec: 10/21/19 12:43 AB [id number]) Physical Therapy Current Condition Current Condition Evaluation Date 10/21/19 Treatment Diagnosis s/p L4-5 post/postlat fusion/ lami; L5S1 hemilami; difficulaty in walking Onset Date 10/20/19 Precautions Lumbar Precautions Log Roll,No Twisting,Limit Bending,Lifting Restriction of 10 lbs,Gait Belt above Incisional Area M3 PT-IP Subjective Start: 10/21/19 12:28 Freq: NEEDED Status: Active Protocol: Document 10/22/19 09:29 AB (Rec: 10/22/19 11:30 AB [email or web address]) Subjective Physical Therapy Visit Type Type Treatment Note Visit Start Time 09:29 Visit Stop Time 09:57 Total Visit Minutes 28 Number of MACHINE STACKER Visits 0 Physical Therapy Visit Comments Patient Comments pt agreeable to do PT Therapy Pain Assessment Pain When Pain Assessed At Rest Pain Present Pain Present Pain Reported Location left back/leg/knee Intensity 5 Scale Used Numeric (0 - 10) Description Sharp Pain Management Techniques Modification of Treatment,Re- positioning,Timing of Activity with Medications M4 PT-IP Mobility and Gait Start: 10/21/19 12:28 Freq: NEEDED Status: Active Protocol: Document 10/22/19 09:29 AB (Rec: 10/22/19 11:30 AB [id number]) PT-Bed Mobility Assessment Rolling Type of Rolling Log Rolling Level of Assist Standby Assistance Supine to Sit Supine to Sit Standby Assistance Sit to Supine Sit to Supine Standby Assistance PT-Transfer Assessment Sit to and From Stand Sit to and from Stand Standby Assistance Equipment Transfer Assistive Device Gait Belt,Front Wheeled Walker Orthotic/Prosthetic Devices or Brace: No Comments Mobility Comments pt sitting on the window bench . stated that it is more comfortable for her to sit on than the recliner chair. agreed to do PT. FWW dispensed and papers signed. pt completed sit to stand SBA and ambulated in the hallway SBA. completed stair climbing SBA. pt ambulated back to her room. demonstrated log roll bed mobility supine <>sit without use of bed rail SBA. pt wanted to sit up back on the window bench and ambulated using FWW SBA. Gait Assessment Gait Gait Assistance Required: Standby Assistance Distance (Feet) 200 Able to Maintain Weight Bearing Status Yes During Gait Assistive Devices Assistive Device Gait Belt,Front Wheeled Walker Orthotic/Prosthetic Devices or Brace: No Factors Limiting Gait Function Factors Limiting Gait Function Decreased Strength,Limited Range of Motion,Pain,Poor Balance Stair Climbing Assessment Evaluation Level of Assist On Stairs Standby Assistance Devices Stair Climbing Assistive Devices Right Railing Technique/Endurance Stair Climbing Direction Ascend and Descend Stair Climbing Technique Step to Step Number of Steps Climbed 3 Stair Climbing Set # Repetitions (reps) 1 M5 PT-IP Objective Assessments Start: 10/21/19 12:28 Freq: NEEDED Status: Active Protocol: Document 10/21/19 10:00 AB (Rec: 10/21/19 12:43 AB [id number]) Orientation Orientation/Cognition Level of Alertness Alert Orientation Name,Age,Birthday,Month,Date, Year,Day of Week,Place, Situation Language Function Ability No Deficits Noted Safety Awareness Understands Safety Issues Memory Description No Deficits Noted Gross Range of Motion Lower Extremity ROM Assessment Within Functional Limits Strength Lower Extremity Strength Assessment Right Impaired Hip 4-/5 Knee 4-/5 Coordination Assessment Gross Coordination Gross Coordination WNL Sensation Assessment Sensation Gross Sensation WNL Muscle Tone Muscle Tone WNL Yes M6 PT-IP Treatment Start: 10/21/19 12:28 Freq: NEEDED Status: Active Protocol: Document 10/22/19 09:29 AB (Rec: 10/22/19 11:30 AB [email or web address]) Physical Therapy Treatment Education Education Provided Safety Equipment Issued Equipment Type and Company FWW dispensed from [employer]. pt concerned about priced. called [facility] and stated that co-pay will not be more than $10-12. informed pt and agreed to get the walker. M7 PT-IP Assessment and Plan Start: 10/21/19 12:28 Freq: NEEDED Status: Active Protocol: Document 10/22/19 09:29 AB (Rec: 10/22/19 11:30 AB [email or web address]) PT Summary Assessment and Plan Potential Rehabilitation Potential Good Summary Impairments Pain,ROM,Strength,Balance, Sensation,Bed Mobility, Transfers,Gait,Activity Tolerance Progress Towards Goals Progressing Toward Goals Assessment Summary pt requires SBA with mobility and plans to go home today. pt will have her friend to assist her at home but her friend will not be able to come until sunday but for the mean time, has friends/ neighbors that can assist her if needed. pt may go home when stable. Goals Bed Mobility Goal Independent Transfer Goal Independent,Front Wheeled Walker Gait Goal Independent,Front Wheel Walker Gait Distance 250 Other Goals up/down 8 steps R rail ascending SBA Days to Meet Goals 5 Frequency of Treatment Frequency Of Treatment Twice a Day Treatment Plan Physical Therapy Treatment Plan Bed Mobility Training,Transfer Training,Gait Training, Therapeutic Exercise,Balance Retraining,Post Op Education, Discharge Planning,Hot or Cold Pack,Neuromuscular Re-ed, Coordination Retraining,Manual Therapy Recommendations To Nursing Amount of Assist Needed 1 Person Assist Discharge Recommendations PT Discharge Recommendations Home with Assistance Transportation Needs at Discharge Private Vehicle
[2019-10-22] MEDS: OXYCODONE IR 5 MG TABLET 15 MG PO (09:38)
[2019-10-22] MEDS: polyethylene glycoL 3350 17 GM POWD.PACK PO (09:38)
--- NOTE | 2019-10-22 10:07 | OT.IP.TRT ---
Current Diagnoses Spondylolisthesis, lumbar region (10/21/19) Spinal stenosis, lumbar region without neurogenic claudication (10/21/19) Spinal stenosis, lumbar region with neurogenic claudication (10/21/19) Surgery Performed Operation Date: 10/20/19 12:15 Actual Procedures p L5-S1 hemilaminectomy, L4-5 TLIF w/posterior instrumentation - Adonis Dave MD Occupational Therapy Treatment Note M2 OT-IP Current Condition Start: 10/21/19 12:44 Freq: Status: Active Protocol: Document 10/21/19 08:55 [facility] (Rec: 10/21/19 15:05 [facility] [id number]) Occupational Therapy Current Condition Current Condition Evaluation Date 10/21/19 Treatment Diagnosis Spinal stenosis, s/p L5-S1 hemilaminectomy, L4-5 TLIF w/ post inst Diagnosis Onset Date 10/20/19 Post Operative Precautions Lumbar Precautions Log Roll,No Twisting,Limit Bending,Lifting Restriction of 10 lbs,Gait Belt above Incisional Area Weight Bearing Status Weight Bearing Status Weight Bear as Tolerated M3 OT- IP Subjective and Pain Start: 10/21/19 12:44 Freq: Status: Active Protocol: Document 10/22/19 10:07 [facility] (Rec: 10/22/19 13:03 [facility] [email or web address]) OT- Subjective Occupational Therapy Visit Type Type Treatment Note Visit Start Time 10:07 Visit Stop Time 10:54 Total Visit Minutes 47 Occupational Therapy Visit Comments Patient Comments Pt agreeable to take a shower. Patient/Caregiver Goals To go home. OT Pain Assessment Pain When Pain Assessed During Mobility Pain Present Pain Present Pain Reported Location left back/leg/knee Intensity 3 Scale Used Numeric (0 - 10) M4 OT- IP ADL's Start: 10/21/19 12:44 Freq: Status: Active Protocol: Document 10/22/19 10:07 [facility] (Rec: 10/22/19 13:03 [facility] [email or web address]) OT DOB-[id number]-[id number] General Evaluation Self-Feeding Ability Independent OT ADL-Grooming General Evaluation Grooming Ability Independent OT ADL-Oral Care General Eval Oral Care Ability Independent OT ADL-Dressing General Eval Upper Body Dressing Ability Standby Assistance Lower Body Dressing Ability Standby Assistance Comments OT Dressing Comments Educated pt on LB dressing equipment and issued to pt and needing initial teaching for safety to be able to do LB dressing needs. Pt able to show good safety and understanding for LB dressing needs. OT ADL-Toileting Comments OT Toileting Comments Pt has ordered a toilet aid wand to use at home. OT ADL-Bathing Bathing Type Bathing Type Shower General Evaluation Bathing Ability Moderate Assistance Areas Needing Assistance Wash/Dry Back,Wash/Dry Perineal Area Devices Bathing Equipment Long Handled Sponge or [place], Shower Chair with Arms,Grab Bars Comments OT Bathing Comments Pt needing assist to wash her back and educated to use a long towel to assist to wash her pericare needs. Pt states will get a shower chair as well. M5 OT- IP IADL's Start: 10/21/19 12:44 Freq: Status: Active Protocol: Document 10/21/19 08:55 [facility] (Rec: 10/21/19 15:05 [facility] [id number]) OT-Instrumental Activities of Daily Living Deficits IADL Deficits Identified Deficits Home Safety Awareness Awareness of Need for Assistance at Home Good Awareness Ability to Problem Solve Emergency Able to Problem Solve Situations Medication Management Medication Management No Deficits Identified Money Management Money Management No Deficits Identified Meal Preparation Meal Preparation Caregiver Provides Assist Animal Behaviourist Animal Behaviourist Caregiver Provides Assist Driving Driving Caregiver Provides Assist M6 OT- IP Functional Cognition Start: 10/21/19 12:44 Freq: Status: Active Protocol: Document 10/22/19 10:07 [facility] (Rec: 10/22/19 13:03 [facility] [email or web address]) Cognitive Factors Limiting Selfcare Function Cognitive Comments Cognitive Assessment Comments Pt at baseline. Pt has good understanding for back precautions needs. M7 OT- IP Mobility and Balance Start: 10/21/19 12:44 Freq: Status: Active Protocol: Document 10/22/19 10:07 [facility] (Rec: 10/22/19 13:03 [facility] [email or web address]) OT-Transfer Assessment Sit to and From Stand Sit to and from Stand Standby Assistance Transfers Transfer Ability Standby Assistance Technique Transfer Destination Chair,Shower Stall,Toilet Devices Transfer Assistive Devices Gait Belt,Front Wheeled Walker Comments Mobility Comments Pt distant SBA with FWW. OT- Balance Assessment Sitting Balance and Reactions Static Sitting Balance Ability Normal Dynamic Sitting Balance Ability Good Standing Balance and Reactions Static Standing Balance Ability Good M8 OT- IP Objective Assessments Start: 10/21/19 12:44 Freq: Status: Active Protocol: Document 10/21/19 08:55 [facility] (Rec: 10/21/19 15:05 [facility] [id number]) OT Gross Range of Motion Upper Extremity Range of Motion Assessment Within Functional Limits OT Strength Upper Extremity Strength Assessment Within Functional Limits OT-Muscle Tone Assessment Muscle Tone WNL Yes M9 OT- IP Assessment and Plan Start: 10/21/19 12:44 Freq: Status: Active Protocol: Document 10/22/19 10:07 [facility] (Rec: 10/22/19 13:03 [facility] [email or web address]) OT Summary Assessment and Plan Potential Rehabilitation Potential Good Analytic Complexity at Evaluation Low Summary OT Impairments Pain,Functional Mobility, Dressing,Toileting,Bathing Progress Towards Goals Progressing Toward Goals Assessment Summary Pt doing well and going home today . Suggested for pt to have friends help set up items and assist as needed. Have someone there for showers and assist for IADl needs until pt's roommate comes back. Pt has ordered a toilet paper aid and to get a shower chair. Goals Grooming Goal Independent Dressing Goal Independent Toileting Goal Independent,Toilet Paper Aid Bathing Goal Standby Assistance Toilet Transfer Goal Independent Shower Transfer Goal Standby Assistance Patient/Caregiver Education Goal Demonstrate Post-Op Precautions,Caregiver Independent Assisting Patient Days to Meet Goals 1 Frequency of Treatment Frequency Of Treatment Once a Day Treatment Plan OT Treatment Plan ADL Training,Functional Mobility,Patient/Family Education,Discharge Planning Discharge Recommendations OT Discharge Recommendations Home with Assistance Home Equipment Needs Toilet paper aid, shower chair
--- NOTE | 2019-10-22 11:22 | PM.PN.1 ---
Exam Vital Signs (past 8 hours): - 10/22/19 05:00 10/22/19 07:00 Temperature 97.1 F L 97.8 F Pulse Rate 78 79 Respiratory Rate 18 18 Blood Pressure 143/84 H 129/62 Pulse Oximetry 96 94 Oxygen Delivery Method Room Air Oxygen Flow Rate 0 Objective Labs Result Diagrams: 10/21/19 05:35 Labs: Laboratory Results - last 24 hr 10/21/19 15:55 Urine Color Yellow Urine Appearance Clear Urine pH 6.5 Ur Specific [place] <=1.005 Urine Protein Negative Urine Glucose (UA) Negative Urine Ketones Negative Urine Occult Blood Negative Urine Nitrate Negative Urine Bilirubin Negative Urine Urobilinogen 0.2 Ur Leukocyte Esterase Negative Urine RBC None seen Urine WBC None seen Urine Bacteria None seen Ur Culture Indicated? Cult not indicated Micro UA Comment Microscopic normal Assessment & Plan Assessment & Plan narrative: Patient is admitted after surgery. POD#2 s/p lumbar fusion. Patient has been stable and progressing with physical therapy. Patient is neurovascularly intact on exam. Patient has no signs or symptoms of DVT. Patient's dressing is clean dry and intact. Will discharge today to home once clear PT/OT. Quality VTE Deep Vein Thrombosis/Pulmonary Embolism Present on Admission: No
--- NOTE | 2019-10-22 12:46 | PC.NURSE ---
Discharge: Feels ready to d/c home. Seen by hcp and received their instructions. Seen by PT/OT and given their instructions. Had a shower prior to leaving. Dressing on back changed to coversite. Has dual incisions to lower back, stapled, no bruises or redness seen. No drainage, edges approx. Given extra dressing if needed until she gets her own. Given rx's. Vds w/out diff and is eating w/out problems. Pt reports she is in severe pain but is groggy appearing and dozes off during conversation. She says part of this is due to not getting sleep the last couple of days and having been busy this am. Reviewed d/c packet and questions answered. She was concerned about not having a 2 week supply of pain medication and was instructed in the changes of the laws as they relate to rx's/narcotics. She voiced no other concerns. D/c home via auto w/friend.
== END 2019-10-22 12:45 | disposition home or self-care (01) ==
LOC: OR 15:55 → AC 15:55
PROVIDERS: Physician Assistant Medical; Admitting Provider Orthopaedic Surgery Orthopaedic Surgery of the Spine; Referring Provider Orthopaedic Surgery Orthopaedic Surgery of the Spine; Visit Provider Orthopaedic Surgery Orthopaedic Surgery of the Spine
PROC: (CPT 22633; principal; 2019-10-20 12:15)
DX: M48.062 Spinal stenosis, lumbar region with neurogenic claudication (principal); M43.16 Spondylolisthesis, lumbar region; M47.26 Other spondylosis with radiculopathy, lumbar region; E66.9 Obesity, unspecified; I10 Essential (primary) hypertension
CPT/HCPCS: 22633; 22840; 22853; 63030; 63047; 36415; 36592; 72100; 76000; 81001; 85014; 85018; 97116; 97161; 97165; 97530; 97535; C1776; G0378; C9290; J0330; J0690; J1100; J1170; J2060; J2250; J2405; J2704; J3010